=== PATIENT | male | born 1955 | race Hispanic/Latino ===

== ENCOUNTER 2020-11-01 09:00 | Inpatient (IN) | payer BC, MEDICARE ==
[~2020-11-01] VITALS: Ht 165.1 cm; Wt 94.0 kg
[2020-11-01 11:35] LABS: BASOPHILS % (AUTO) 0.2 % (0.0-5.0); EOSINOPHILS % (AUTO) 1.6 % (0.0-8.0); HEMATOCRIT 39.7 % (42-54); LYMPHOCYTES % (AUTO) 29.3 % (21.0-51.0); MEAN CORPUSCULAR HEMOGLOBIN 29.8 pg (27.0-33.0); MEAN CORPUSCULAR VOLUME 87.6 fL (79-99); MONOCYTES % (AUTO) 5.2 % (3.0-13.0); NEUTROPHILS % (AUTO) 63.5 % (40.0-77.0); PLATELET COUNT (AUTO) 194 K/uL (130-400); RED BLOOD CELL COUNT(AUTO) 4.53 MIL/uL (4.50-6.20); RED CELL DISTRIBUTION WIDTH 12.2 % (11.0-15.5); WHITE BLOOD COUNT (AUTO) 5.8 K/uL (4.8-10.8)
[2020-11-01 11:40] LABS: POTASSIUM 4.6 mmol/L (3.5-5.1)
[2020-11-01 11:55] LABS: APPEARANCE,URINE Clear (CLEAR); BILIRUBIN,URINE Negative (NEGATIVE); COLOR,URINE Dark Yellow (YELLOW); GLUCOSE, URINE (UA) >=1000 mg/dL (NEGATIVE); KETONES,URINE Negative (NEGATIVE); LEUKOCYTE ESTERASE ,URINE Negative (NEGATIVE); NITRATE,URINE Negative (NEGATIVE); OCCULT BLOOD,URINE Trace (NEGATIVE); PROTEIN,URINE POS 2+ mg/dL (NEGATIVE)
[2020-11-01 12:13] LABS: BACTERIA,URINE Rare /HPF (None Seen); MUCUS,URINE Few LPF (None Seen); RBC,URINE 0-1 /HPF (0-1); SQUAMOUS EPITHELIAL CELL,UR Rare /HPF (0-2); WBC,URINE 0-1 /HPF (0-1)
[2020-11-01 12:35] LABS: INR 1.04 (0.85-1.15); PROTHROMBIN TIME 11.1 SEC (9.6-11.6)
[2020-11-03] MEDS ORDERED: GLIP10TA9 PO (16:54)
[2020-11-03] MEDS ORDERED: OMEP20CA12 PO (16:54)
[2020-11-03] MEDS ORDERED: MELO-106 PO (16:54)
[2020-11-03] MEDS ORDERED: METF500S7 PO (16:54)
[2020-11-03] MEDS ORDERED: ATOR-2 PO (16:54)
[2020-11-03 16:56] VITALS: BP 156/78
[2020-11-08] VITALS (24 sets, daily range): BP systolic 108–166; BP diastolic 46–91
[2020-11-08] MEDS ORDERED: VANCOMYCIN 1G 1.5 GM in 0.9% NACL 250ML 250 ML IV SCH (06:00)
[2020-11-08] MEDS ORDERED: 0.9%NACL 1000ML 1,000 ML IV ONE (06:45)
[2020-11-08] MEDS: CEFAZOLIN SODIUM 1 GM VIAL ONE ×2 (07:01→08:45)
[2020-11-08] MEDS ORDERED: CEFAZOLIN SODIUM 1 GM VIAL ONE (07:27)
[2020-11-08] MEDS ORDERED: SUCCINYLCHOLINE CHLORIDE 20 MG/ML 10 ML VIAL ONE (07:37)
[2020-11-08] MEDS ORDERED: LIDOCAINE PF 100MG/5ML (2%) SYRINGE 5ML ONE (07:37)
[2020-11-08] MEDS ORDERED: ROCURONIUM 10MG/1ML SYR 10 MG/ML ML ONE (07:38)
[2020-11-08] MEDS ORDERED: PROPOFOL 10 MG/ML 20ML VIAL IV ONE (07:38)
[2020-11-08] MEDS ORDERED: FENTANYL CITRATE PF 50 MCG/1 ML 2ML VIAL ONE (07:39)
[2020-11-08] MEDS ORDERED: ROPIVACAINE 0.5% 5MG/ML 30ML IJ ONE (07:42)
[2020-11-08] MEDS ORDERED: CEFAZOLIN SODIUM 1 GM VIAL IVP ONE (08:00)
[2020-11-08] MEDS ORDERED: TRANEXAMIC ACID 1000MG/10ML ONE ×2 (08:08→10:37)
[2020-11-08] MEDS ORDERED: MIDAZOLAM HCL 1 MG/ML 2ML VIAL ONE (08:08)
[2020-11-08] MEDS ORDERED: PHENYLEPHRINE HCL 10 MG/ML 1ML VIAL IV ONE (08:26)
[2020-11-08] MEDS ORDERED: 0.9%NACL 10ML VIAL ONE (08:26)
[2020-11-08] MEDS ORDERED: EPHEDRINE SULFATE 50 MG/ML AMPULE ONE (08:27)
[2020-11-08] MEDS ORDERED: GLYCOPYRROLATE 1 MG/5 ML SYRINGE ONE (10:18)
[2020-11-08] MEDS ORDERED: NEOSTIGMINE 5MG/5ML SYR IV ONE (10:18)
[2020-11-08] MEDS ORDERED: ONDANSETRON 4MG INJ ONE (10:26)
[2020-11-08] MEDS ORDERED: KETOROLAC 30MG VIAL (30MG/ML) ONE (10:26)
[2020-11-08] MEDS ORDERED: LIDOCAINE HCL-MPF 1% 2ML VIAL IV PRN (10:30)
[2020-11-08] MEDS ORDERED: POTASSIUM CHLORIDE 20MEQ/100ML 100 ML IV PRN (10:30)
[2020-11-08] MEDS ORDERED: TEMAZEPAM 15 MG CAPSULE PO PRN (10:30)
[2020-11-08] MEDS ORDERED: ONDANSETRON 4MG INJ IVP PRN (10:30)
[2020-11-08] MEDS ORDERED: TRAMADOL HCL 50 MG TABLET PO PRN (10:30)
[2020-11-08] MEDS ORDERED: POTASSIUM CHLORIDE 10% ELIXIR 20 MEQ/15 ML UDCUP PO PRN (10:30)
[2020-11-08] MEDS ORDERED: FERROUS FUMARATE 324 MG TABLET PO PRN (10:30)
[2020-11-08] MEDS: 0.9%NACL 1000ML 1,000 ML IV SCH ×2 (10:30→19:40)
[2020-11-08] MEDS ORDERED: OXYCODONE HCL 5 MG TAB PO PRN (10:30)
[2020-11-08] MEDS: ACETAMINOPHEN 500 MG TABLET PO SCH ×2 (10:30→17:55)
[2020-11-08] MEDS ORDERED: DiphenhydrAMINE HCL 50 MG/ML VIAL IVP PRN (10:30)
[2020-11-08] MEDS ORDERED: MEPERIDINE-PF 25 MG/ML SYG ONE ×3 (10:42→11:17)
[2020-11-08] MEDS: INSULIN HUMULIN R 100 UNIT/ML 3ML SQ SCH ×3 (11:30→20:46)
[2020-11-08] MEDS: KETOROLAC 15MG/ML VIAL (15MG/ML) IV PRN (13:17)
[2020-11-08] MEDS: OXYCODONE HCL 5 MG TAB PO PRN ×3 (14:06→23:11)
[2020-11-08] MEDS: CEFAZOLIN SODIUM 1 GM VIAL IVP SCH ×2 (16:17→23:11)
[2020-11-08] MEDS: METFORMIN HCL 500 MG TABLET PO SCH (17:53)
[2020-11-08] MEDS: VANCOMYCIN 1G/250ML KIT 250 ML IV SCH (18:05)
[2020-11-08] MEDS: ATORVASTATIN 40 MG TABLET PO SCH (19:38)
[2020-11-08] MEDS: PREGABALIN 25 MG CAP PO SCH (19:38)
[2020-11-08] MEDS: ASPIRIN 81MG CHEW TAB PO SCH (19:38)
[2020-11-08] MEDS: CELECOXIB 200 MG CAP PO SCH (19:39)
[2020-11-08] MEDS: HYDROMORPHONE 1 MG INJ IVP PRN ×3 (21:06→23:44)
[2020-11-09] MEDS: HYDROMORPHONE 1 MG INJ IVP PRN ×5 (00:41→04:46)
[2020-11-09] MEDS: ACETAMINOPHEN 500 MG TABLET PO SCH ×3 (01:53→18:30)
[2020-11-09] MEDS: OXYCODONE HCL 5 MG TAB PO PRN ×6 (01:53→23:16)
[2020-11-09 03:48] LABS: HEMATOCRIT 30.8 % (42-54); MEAN CORPUSCULAR HEMOGLOBIN 29.8 pg (27.0-33.0); MEAN CORPUSCULAR HGB CONC 34.1 g/dL (32.0-36.0); MEAN CORPUSCULAR VOLUME 87.5 fL (79-99); RED BLOOD CELL COUNT(AUTO) 3.52 MIL/uL (4.50-6.20); RED CELL DISTRIBUTION WIDTH 12.2 % (11.0-15.5); WHITE BLOOD COUNT (AUTO) 6.5 K/uL (4.8-10.8)
[2020-11-09] MEDS: VANCOMYCIN 1G/250ML KIT 250 ML IV SCH (03:55)
[2020-11-09 03:58] LABS: CREATININE 1.1 mg/dL (0.5-1.5); POTASSIUM 3.5 mmol/L (3.5-5.1)
[2020-11-09 04:16] VITALS: BP 141/65
[2020-11-09] MEDS: 0.9%NACL 1000ML 1,000 ML IV SCH (05:22)
[2020-11-09] MEDS: INSULIN HUMULIN R 100 UNIT/ML 3ML SQ SCH ×4 (05:22→21:00)
[2020-11-09] MEDS: KCL 20 MEQ ERTAB PO PRN ×2 (06:30→08:28)
[2020-11-09 08:08] VITALS: BP 147/77
[2020-11-09] MEDS: POLYETHYLENE GLYCOL 3350 17 GM POWD.PACK PO SCH (08:26)
[2020-11-09] MEDS: ASPIRIN 81MG CHEW TAB PO SCH ×2 (08:27→19:29)
[2020-11-09] MEDS: CELECOXIB 200 MG CAP PO SCH ×2 (08:27→19:28)
[2020-11-09] MEDS: PREGABALIN 25 MG CAP PO SCH ×2 (08:27→19:28)
[2020-11-09] MEDS: METFORMIN HCL 500 MG TABLET PO SCH ×2 (08:28→16:05)
[2020-11-09] MEDS: CALCIUM CARB 500MG PO PRN ×2 (08:28→19:28)
[2020-11-09] MEDS: GLIPIZIDE 5 MG TABLET PO SCH (08:28)
[2020-11-09] MEDS: PANTOPRAZOLE 40 MG TAB DR PO SCH (08:28)
[2020-11-09] MEDS: TAMSULOSIN HCL 0.4 MG CAP.ER.24H PO SCH (08:28)
[2020-11-09] MEDS: KETOROLAC 15MG/ML VIAL (15MG/ML) IV PRN (08:29)
[2020-11-09 11:11] VITALS: BP 133/60
[2020-11-09 16:02] VITALS: BP 127/63
[2020-11-09 19:00] VITALS: BP 142/76
[2020-11-09] MEDS: ATORVASTATIN 40 MG TABLET PO SCH (19:28)
[2020-11-10] VITALS: BP 132/72
[2020-11-10] MEDS: ACETAMINOPHEN 500 MG TABLET PO SCH ×3 (01:34→20:00)
[2020-11-10] MEDS ORDERED: HYDROMORPHONE 1 MG INJ IVP PRN (02:45)
[2020-11-10] MEDS ORDERED: HYDROMORPHONE 2 MG VIAL (2MG/ML) ONE ×2 (02:54→03:51)
[2020-11-10] MEDS ORDERED: CALCIUM CARB 500MG CHEW TAB ONE (03:46)
[2020-11-10 04:00] VITALS: BP 138/66
[2020-11-10] MEDS ORDERED: CALCIUM CARB 500MG CHEW TAB PO PRN (04:00)
[2020-11-10] MEDS: INSULIN HUMULIN R 100 UNIT/ML 3ML SQ SCH ×4 (06:09→19:57)
[2020-11-10 08:05] VITALS: BP 151/90
[2020-11-10] MEDS: PREGABALIN 25 MG CAP PO SCH ×2 (08:14→19:59)
[2020-11-10] MEDS: PANTOPRAZOLE 40 MG TAB DR PO SCH (08:15)
[2020-11-10] MEDS: CELECOXIB 200 MG CAP PO SCH ×2 (08:15→19:59)
[2020-11-10] MEDS: TAMSULOSIN HCL 0.4 MG CAP.ER.24H PO SCH (08:15)
[2020-11-10] MEDS: METFORMIN HCL 500 MG TABLET PO SCH ×2 (08:15→17:35)
[2020-11-10] MEDS: ASPIRIN 81MG CHEW TAB PO SCH ×2 (08:15→19:59)
[2020-11-10] MEDS: GLIPIZIDE 5 MG TABLET PO SCH (08:15)
[2020-11-10] MEDS: OXYCODONE HCL 5 MG TAB PO PRN ×2 (08:15→13:37)
[2020-11-10] MEDS: POLYETHYLENE GLYCOL 3350 17 GM POWD.PACK PO SCH (08:16)
[2020-11-10] MEDS: KETOROLAC 15MG/ML VIAL (15MG/ML) IV PRN (10:23)
[2020-11-10 11:30] VITALS: BP 160/81
[2020-11-10] MEDS: CALCIUM CARB 500MG PO PRN (11:56)
[2020-11-10 19:34] VITALS: BP 142/67
[2020-11-10] MEDS: ATORVASTATIN 40 MG TABLET PO SCH (19:59)
[2020-11-10 23:20] VITALS: BP 159/87
[2020-11-11 04:20] VITALS: BP 133/67
[2020-11-11] MEDS: ACETAMINOPHEN 500 MG TABLET PO SCH ×2 (05:20→15:33)
[2020-11-11] MEDS: INSULIN HUMULIN R 100 UNIT/ML 3ML SQ SCH ×2 (05:57→12:08)
[2020-11-11 08:00] VITALS: BP 141/71
[2020-11-11] MEDS: OXYCODONE HCL 5 MG TAB PO PRN ×2 (08:00→15:34)
[2020-11-11] MEDS: POLYETHYLENE GLYCOL 3350 17 GM POWD.PACK PO SCH (08:00)
[2020-11-11] MEDS: PREGABALIN 25 MG CAP PO SCH (08:00)
[2020-11-11] MEDS: TAMSULOSIN HCL 0.4 MG CAP.ER.24H PO SCH (08:01)
[2020-11-11] MEDS: ASPIRIN 81MG CHEW TAB PO SCH (08:01)
[2020-11-11] MEDS: GLIPIZIDE 5 MG TABLET PO SCH (08:01)
[2020-11-11] MEDS: METFORMIN HCL 500 MG TABLET PO SCH (08:01)
[2020-11-11] MEDS: CELECOXIB 200 MG CAP PO SCH (08:01)
[2020-11-11] MEDS: PANTOPRAZOLE 40 MG TAB DR PO SCH (08:01)
[2020-11-11] MEDS ORDERED: BISACODYL 10 MG SUPP.RECT RC PRN (10:30)
[2020-11-11 11:54] VITALS: BP 150/73
[2020-11-11] MEDS ORDERED: ASPI-1005 PO (15:25)
[2020-11-11] MEDS ORDERED: HYDR-4457 PO (15:25)
== END 2020-11-11 17:55 | disposition home health service (06) | DRG 470 ==
LOC: DAHIP 11-08 05:57 → EDSTATUS 11-08 09:00 → 3AH 11-08 11:54
PROVIDERS: ADMIT Orthopaedic Surgery; ATTEND Orthopaedic Surgery
PROC: 0SRD0J9 Replacement of Left Knee Joint with Synthetic Substitute, Cemented, Open Approach (ICD-10-PCS; principal; 2020-11-08 07:30)
DX: M17.12 Unilateral primary osteoarthritis, left knee (principal); E11.22 Type 2 diabetes mellitus with diabetic chronic kidney disease; E78.00 Pure hypercholesterolemia, unspecified; I12.9 Hypertensive chronic kidney disease with stage 1 through stage 4 chronic kidney disease, or unspecified chronic kidney disease; N18.9 Chronic kidney disease, unspecified; Z20.828 Contact with and (suspected) exposure to other viral communicable diseases; G89.29 Other chronic pain; M23.8X2 Other internal derangements of left knee; Z86.14 Personal history of Methicillin resistant Staphylococcus aureus infection; Z79.84 Long term (current) use of oral hypoglycemic drugs; Z79.899 Other long term (current) drug therapy
CPT/HCPCS: 36415; 73562; 80048; 81001; 82948; 85025; 85027; 85610; 87641; 93005; 96365; 97039; G0378; J0330; J0690; J1170; J1815; J1885; J2001; J2175; J2250; J2370; J2405; J2704; J2710; J2795; J3010; J3370; J3490; J7030; J7050; J7120; U0003

== ENCOUNTER → 2025-09-11 | Outpatient (CLI) | payer OTHER ==
[~2025-09-11] MED LIST: ASPI-1005 PO; ATOR-2 PO; GLIP10TA16 PO; HYDR-4457 PO; METF500S9 PO; OMEP20CA12 PO
--- NOTE | 2025-09-11 15:40 | HMCIMG ---
EXAM: NUCLEAR MEDICINE GASTRIC EMPTYING STUDY (SOLID MEAL) Technique: After an overnight fast, the patient ingested two scrambled eggs labeled with Tc-99m sulfur colloid (1.5 mCi). Anterior and posterior abdominal images were acquired at serial time points with geometric mean activity used to calculate gastric counts. Decay correction applied. Clinical Information: Abdominal distension, reflux, bloating; type II diabetes; no prior cholecystectomy. Findings ??? Gastric emptying: Percent emptied from T0 to study end: 12%. Time to study end: 89 minutes (began at 50 minutes post-ingestion per log). Calculated gastric emptying half-time (T???): 443 minutes (normal for standard solid egg meal is typically ? 120 minutes). Pattern shows marked delay in emptying throughout the acquisition. No abnormal tracer accumulation outside the expected gastric/duodenal distribution is reported. Impression: * Markedly delayed gastric emptying for a standard solid meal (T??? 443 minutes; only 12% emptied by 89 minutes), consistent with gastroparesis, which may be related to the patient???s diabetes. * Correlate with glycemic control and medications that can impair gastric emptying (e.g., opioids, anticholinergics, GLP-1 receptor agonists). Gastroenterology referral and consideration of prokinetic therapy per guidelines. If clinically indicated, a standardized 4-hour protocol with percent retention at 1, 2, and 4 hours can further quantify severity. /[place]
== END | disposition home or self-care (01) ==
LOC: RAH 06:46
PROVIDERS: ATTEND Internal Medicine Gastroenterology
DX: R14.0 Abdominal distension (gaseous) (principal); R68.81 Early satiety
CPT/HCPCS: 78264; A9541